=== PATIENT | female | born 1970 | race Caucasian/White ===

== ENCOUNTER 2016-07-11 02:57 | Observation (INO) ==
[2016-07-11] MEDS ORDERED: Naloxone 0.4 MG/ML INJ IVP PRN (05:22)
[2016-07-11] MEDS ORDERED: Acetaminophen 325 MG TABLET PO PRN (05:22)
[2016-07-11] MEDS ORDERED: Nitroglycerin 0.4 MG TAB.SUBL SL PRN (05:29)
[2016-07-11] MEDS: 0.9 % Sodium Chloride 1,000 ML IVC SCH ×2 (05:44→18:25)
--- NOTE | 2016-07-11 05:48 | Internal Med History&Physical ---
Date of Encounter: 07/11/16 Time of Encounter: 05:00 Assessment and Plan (1) Chest pain Current visit: No Status: Acute Patient has typical chest pain with shortness of breath, nausea, and diaphoresis. Respond to nitroglycerin. - Highly suspected ACS. - LBBB noticed, no previous EKG available to compare. - First troponin negative, We will track 3 sets of troponin. - We will repeat EKG in a.m. - Patient is placed on continuous cardiac monitoring. - Full dose Lovenox was given in [facility] emergency room at about 3 AM - Place patient on aspirin, Plavix, beta david, atorvastatin. - Check echocardiogram - Cardiology consult - Put patient on nothing by mouth now, further stress test will be determined by troponin level and cardiology recommendation. Qualifiers: Chest pain type: chest pain due to myocardial ischemia Ischemic chest pain type: unstable angina pectoris Qualified Code(s): I20.0 - Unstable angina (2) Tobacco abuse Current visit: Yes Status: Acute Smoking cessation education. Patient said that she does not need nicotine patch right now. (3) Morbid obesity Current visit: Yes Status: Acute need the lifestyle modification Qualifiers: Obesity type: due to excess calories Qualified Code(s): E66.01 - Morbid ( severe) obesity due to excess calories (4) DVT prophylaxis Current visit: Yes Status: Acute Patient has a full dose Lovenox at 3 AM. Further anticoagulation depending on the troponin level. Internal Medicine - H&P: HPI Chief complaint: Chest pain Admitted From: Home Plans for Post Hospital Care: Home History of present illness: Ms. Cornelius is a 45 year old female presents to [facility] the emergency room for chest pain. Patient said that the chest pain started from midnight and wake her up from sleep. The pain is located on the substernal area, sharp, 5 out of 10, no radiation. patient also feels nauseous but no vomiting. Patient complaining of shortness of breath when she has pain. She also has diaphoresis. Pain lasted about 15 minutes and resolved by itself. However, patient had another episode of chest pain in the emergency room. Last her several minutes and resolved after sublingual nitroglycerin use. Patient denies similar chest pain before. She denies recent travel and the pain is not pleural-like. Patient did have leg cramps, but she said this is not new and happens 2-3 times every week. Patient was found LBBB on EKG, no previous EKG available to compare. [facility] ER doctor called cardiology consult, recommend Lovenox 1 mg/kg subcutaneous once. Patient is pain-free when I saw her. I discussed CODE STATUS with patient. She is a full code. Past Med Surg Social Fam HX - Past Medical History Medical history: no medical history Psychiatric history: no psych history - Social History Smoking Status: Current every day smoker Packs per day: 1 Smokeless Tobacco Status: No Alcohol use: none Drug use: none - Family History Father Hx Family Cardiac Disorders: Yes (heart attack and stroke) Internal Medicine - H&P: Meds Ibuprofen [Motrin] 800 mg PO BID PRN 07/11/16 [History] Allergies Amoxicillin Allergy (Verified 07/11/16 01:13) Hives All Systems PM: A 10-system review of systems was performed and is negative for pertinent findings except as documented above in the HPI. - Constitutional Vitals: Temp Pulse Resp BP Pulse Ox 97.8 F 73 18 126/81 96 07/11/16 04:44 07/11/16 04:44 07/11/16 04:44 07/11/16 04:44 07/11/16 04:44 General appearance: Present: A&O X 3, no acute distress, answers questions appropriately - Head Head exam: Present: atraumatic, normocephalic - Eye Eye exam: Present: PERRL, conjuntiva pink, sclera anicteric Pupils: Present: PERRL - Neck Neck exam general surgery: Present: supple, trachea midline. Absent: lymphadenopathy - Respiratory Respiratory exam: Present: CTAB. Absent: accessory muscle use, rales, rhonchi, wheezes - Cardiovascular Cardiovascular exam: Present: RRR, +S1, +S2. Absent: diastolic murmur, gallop, rubs, systolic murmur - GI/Abdominal GI/Abdominal exam: Present: normal bowel sounds, soft, no peritoneal signs. Absent: distended, tenderness - Extremities Exam Extremities exam: Present: warm, radial pulses palpable and symetrical. Absent : calf tenderness, cyanotic, pedal edema - Neurological Exam Neurological exam: Present: CN II-XII intact, oriented X3, no focal deficits. Absent: pronater drift, facial droop, speech deficit - Skin Skin exam: Present: dry, intact Internal Med - H&P Results - EKG Data -: EKG Interpreted by Myself (LBBB) EKG shows normal: sinus rhythm Rate: normal
--- NOTE | 2016-07-11 09:25 | Cardiology Consult Note ---
Date of Encounter: 07/11/16 Time of Encounter: 08:00 Assessment and Plan (1) Chest pain Current Visit: No Status: Acute Per Cardiology: Atypical symptoms that occurred at rest. Currently chest pain-free. Troponins negative 2. Risk factors for CAD include obesity, nicotine abuse, and family history. Echo pending. Further recommendations after echo. Discussed and reviewed with Dr. Sanchez, will consider possible stress test versus catheterization. Qualifiers: Chest pain type: chest pain due to myocardial ischemia Ischemic chest pain type: unstable angina pectoris Qualified Code(s): I20.0 - Unstable angina (2) LBBB (left bundle branch block) Current Visit: Yes Status: Acute Per Cardiology: Left bundle branch block on ECG, unknown chronicity. Patient unaware of previous history and no records available for comparison. (3) Tobacco abuse Current Visit: Yes Status: Acute Per Cardiology: History smoking one half packs per day for 30 years. Smoking cessation counseling provided for 3-5 minutes. Discussion w patient/family: The assessment and plan as outlined above was discussed with the patient who expressed understanding and agreement. All questions were answered. Thank you for involving us in the care of your patient. Please call with any questions. History of Present Illness Consult date: 07/11/16 Requesting physician: Mihir Lopez Consult reason: LBBB, CP Chief complaint: Leg cramps, sweating, CP History of present illness: Ms. Cornelius is a 45 year old female with a relevant past medical history of obesity, nicotine abuse of smoking 1-1/2 packs per day for 30 years, positive family history of CAD with father with AR in his 60s. Cardiology consult for chest pain and new finding of left bundle branch block on ECG. Patient denies any previous awareness to left bundle branch block and reportedly has never had ECG. No previous ECGs found on file. She reports one episode of right-sided chest discomfort to her right shoulder region at rest about 1 week ago at work. Prior to yesterday evening her normal state of health other than slight increased fatigue from baseline. She does report chronic episodes of leg cramps for many years. She reports she awakened around midnight last night with leg cramping, however also developed diaphoresis with some mild nausea with some sharp stabbing chest pain that lasted for a few minutes and subsided. She denied any palpitations, vomiting, shortness of breath. Denies any recent fever, chills, nausea, vomiting, diarrhea. Denies any dizziness, syncope, falls. Denies any active bleeding or blood loss. Past Med Surg Social Fam HX - Past Medical History Attestation: Yes The following information was validated with the patient. Source: patient, old records reviewed Medical history: no medical history Psychiatric history: no psych history - Social History Smoking Status: Current every day smoker Packs per day: 1 Smokeless Tobacco Status: No Alcohol use: none Drug use: none - Family History Father Hx Family Cardiac Disorders: Yes (heart attack and stroke) Medications and Allergies Ibuprofen [Motrin] 800 mg PO BID PRN 07/11/16 [History] Allergies Amoxicillin Allergy (Verified 07/11/16 01:13) Hives All Systems Review: A 10-system review of systems was performed and is negative for pertinent findings except as documented above in the HPI. - Constitutional Constitutional: fatigue - Cardiovascular Cardiovascular: as per HPI, chest pain at rest - Musculoskeletal Musculoskeletal: muscle cramps Physical Examination Vital Signs, Last 4 Hours Temp Pulse Resp BP Pulse Ox 07/11/16 07:14 97.6 F 73 18 120/81 94 General: Conversant, No Apparent Distress HEENT: Atraumatic, Normocephaly, Mucus Membranes Moist Neck: No JVD, Normal carotid pulses Cardiac: Reg Rate and Rhythm, Normal S1 and S2, No Murmur Lungs: Normal Breath Sounds, No Wheeze, Rales, Rhonchi Neuro: Alert and responsive, No focal deficits noted Abdomen: Soft, Non-Tender, Other (obese) Skin: No rashes noted on visualized skin Musculoskeletal: No Chest Wall Tenderness Extremities: No Edema, Normal Pulses Results Lab Results Laboratory Tests 07/11/16 07/11/16 07/11/16 01:43 01:43 01:43 Hgb 13.6 Hct 42.7 Plt Count 162 INR 1.0 Creatinine 0.86 Est GFR (Non-Af Amer) > 60 AST 16 ALT 15 Troponin I B-Natriuretic Peptide 07/11/16 07/11/16 07/11/16 01:43 01:43 06:14 Hgb Hct Plt Count INR Creatinine Est GFR (Non-Af Amer) AST ALT Troponin I 0.01 0.00 B-Natriuretic Peptide 16 Active Medications Acetaminophen (Tylenol) 650 mg PO Q6HR PRN PRN Reason: Mild Pain (1-3) Stop: 01/10/17 05:23 Aspirin (Aspirin Ec) 81 mg PO DAILY [facility] Stop: 01/10/17 09:01 Sodium Chloride (0.9 % Sodium Chloride) 1,000 mls @ 100 mls/hr IVC .Q10H [facility] Stop: 01/10/17 05:31 Last Admin: 07/11/16 05:44 Dose: 100 mls/hr Metoprolol Tartrate (Lopressor) 12.5 mg PO BID [facility] Stop: 01/10/17 09:01 Naloxone HCl (Narcan) 0.4 mg IVP Q2MIN PRN PRN Reason: Opioid Reversal Stop: 01/10/17 05:23 Nitroglycerin (Nitroglycerin) 0.4 mg SL Q5MIN PRN PRN Reason: Chest Pain Stop: 01/10/17 05:30 - EKG Interpretation EKG results cardiology: personally reviewed, left bundle branch block, other ( Sinus rhythm with left bundle branch block on telemetry) Consult Discharge Plan - Plan Referrals: NO,PCP [Primary Care Provider] -
[2016-07-11] MEDS: Aspirin Enteric Coated 81 MG Tablet PO SCH (10:00)
[2016-07-11] MEDS ORDERED: Regadenoson 0.4 MG/5 ML SYRINGE IVP ONE (10:25)
--- NOTE | 2016-07-11 16:32 | ECHO - Doppler Report ---
Echocardiogram Name: Rajni Cornelius Date of Study: 07/11/2016 Date: 1970 Ht: 64.0 in Medical Record#: [id number] Age: 45 Wt: 296.0 lb Gender: Female BSA: 2.31 Order #: [id number] Location: [facility] Room #: [id number] Reading Physician: Cecilia Sanchez DO Greenskeeper Head: Elida Pollock Ordering Physician: Mihir Lopez MD Primary Physician: None Indications: Chest pain Impressions: LVEF 50-55%. There is evidence of mild diastolic dysfunction of the left ventricle. Atypical septal motion. Normal right ventricular size and function. No significant valvular dysfunction. No pulmonary hypertension. Left Ventricular Wall Motion: Rest Echo Findings The apical septal, mid inferior septal, basal inferior septal, mid anterior septal and basal anterior septal cotton were dyskinetic. All other wall segments showed normal motion. Findings: Study Quality * Technically sub-optimal due to body habitus. ECG Findings * Sinus rhythm with BBB. Left Ventricle * Atypical septal motion consistent with bundle branch block. * Mild left ventricular diastolic dysfunction. * LVEF 50-55%. Aorta * Normally sized aortic root. Aortic Valve * No aortic regurgitation. * Aortic valve not well visualized. * No aortic stenosis. Mitral Valve * No mitral regurgitation. * Normal mitral valve structure. * No mitral stenosis. Tricuspid Valve * Tricuspid valve not well visualized. * Trace tricuspid regurgitation. * Estimated RA pressure is 3 mmHg. * Estimated RVSP is 24 mmHg. * No pulmonary hypertension. Pulmonic Valve * Pulmonic valve is not well visualized. * No pulmonic stenosis. * No pulmonic regurgitation. Pulmonary Artery * Pulmonary artery not well visualized. Right Ventricle * Normal right ventricular structure and function. Right Atrium * Normal right atrial size. Interatrial Septum * No evidence of PFO by color Doppler. Pericardium * There is no pericardial effusion present. Left Atrium * Mildly dilated left atrium. IVC * Normal IVC dimensions and inspiratory collapse. History History of Smoking Years 30 Packs 2 Measurements: BP: 120/ 81 2D Normal Values IVSd: 1.20 cm 0.6 - 1.0 cm LVIDd: 4.10 cm 3.7 - 5.6 cm LVPWd: 1.20 cm 0.6 - 1.1 cm LVIDs: 2.70 cm 1.5 - 3.6 cm AO: 2.80 cm < 4.0 cm LA: 3.80 cm 2.0 - 4.0cm %FS: 34.10 cm >25 % LA volume: 71 Mitral Valve Peak E:.98 m/sec Peak A:1.02 m/sec E/A Ratio:1 Peak E' Lat Jozef:16.5 cm/s Peak E' Med Jozef:7.02 cm/s E/E' Lat Ratio:6 E/E' Med Ratio:14 Tricuspid Valve TV Regurg Peak Grad: 21.00mmHg TV Regurg Peak Jozef: 2.27m/sec Updated by Cecilia Sanchez on 07/11/2016 4:27:37 PM electronically signed on 07/11/2016 4:28:22 PM with status of Final Wall Motion Ramirez: 1=Normal, 2=Hypokinesis, 3=Akinesis, 4=Dyskinesis, 5=Aneurysmal, 6=Hyperkinetic, X=Not Visualized (Blank)=Missing
--- NOTE | 2016-07-11 17:06 | Event Note ---
Date of Encounter: 07/11/16 Time of Encounter: 16:00 Patient seen and examined. On examination, patient sitting upright in bed watching television. Patient denies pain or shortness of breath at this time. She states she is tired. Troponins negative 3. ECG revealing left bundle branch block, unable to determine chronicity as we do not have prior EKGs for comparison the patient is a remarkably poor historian. 2 part stress test in process. 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 Potassium levels normal, will check magnesium. Patient has been counseled on avoiding caffeine as she has 3 bottles of empty Mountain Dew on her bedside table. Will initiate vitamin B6 supplementation. We will await second half of her stress test tomorrow. Cardiology is on board. Chest x-ray at [facility] impression: Normal portable chest. Echocardiogram impressions: LVEF 50-55%. There is evidence of mild diastolic dysfunction of the left ventricle. Atypical septal motion. Normal right ventricular size and function. No significant valvular dysfunction. No pulmonary hypertension.
[2016-07-11] MEDS: Pyridoxine (B-6) 50 MG TABLET PO SCH (18:24)
[2016-07-12] MEDS: 0.9 % Sodium Chloride 1,000 ML IVC SCH (04:26)
[2016-07-12 04:38] LABS: Basophils % 0.7 %; Eosinophils # 0.1 K/mcL (0.0-0.6); Eosinophils % 1.6 %; Hematocrit 42.9 % (35.3-44.9); Hemoglobin 13.4 g/dL (11.5-15.4); Immature Granulocytes % 0.5 % (0-4); Lymphocytes # 1.3 K/mcL (0.6-4.6); Mean Corpuscular HGB Conc 31.2 g/dL (31.6-35.5); Mean Corpuscular Hemoglobin 28.1 pg (28.0-33.3); Mean Corpuscular Volume 89.9 fL (83.0-100.0); Monocytes # 0.5 K/mcL (0.0-1.3); Monocytes % 10.6 %; Neutrophils # 2.5 K/mcL (1.6-8.9); Platelet Count 166 K/mcL (140-400); Red Blood Count 4.77 M/mcL (3.82-4.97); Red Cell Distribution Width 13.1 % (11.5-14.5); Segmented Neutrophils % 56.6 %
[2016-07-12 04:56] LABS: BUN/Creatinine Ratio 15 (6-26); Blood Urea Nitrogen 11 mg/dL (7-20); Calcium 8.1 mg/dL (8.6-10.8); Carbon Dioxide 24 mEq/L (19-29); Chloride 111 mEq/L (98-109); Chol/HDL Ratio 3.2 (0-4.9); Cholesterol 120 mg/dL (< 200); Glucose 100 mg/dL (70-99); HDL Cholesterol 37 mg/dL (40-59); LDL Cholesterol,Calculated 69 mg/dL (0-99); Osmolality,Calculated 287 (280-300); Potassium 4.3 mEq/L (3.5-4.5); Sodium 139 mEq/L (136-145); Triglycerides 69 mg/dL (< 150); eGFR For African Americans > 60 (> 60); eGFR For Non-African Americans > 60 (> 60)
[2016-07-12] MEDS: Pyridoxine (B-6) 50 MG TABLET PO SCH (08:36)
[2016-07-12] MEDS: Aspirin Enteric Coated 81 MG Tablet PO SCH (08:36)
--- NOTE | 2016-07-12 11:23 | Nuclear Medicine Stress Report ---
Regadenoson Nuclear 2 day Name: Rajni Cornelius Date of Study: 07/11/2016 Date: 1970 Ht: 64.0 in Medical Record#: [id number] Age: 45 Wt: 290.0 lb Gender: Female Order #: [id number] Location: [facility] Room: [facility] Supervising Provider: Jose Cruz Zaman CNP Reading Physician: Valentín Marquis DO, FAC, [facility] Ordering Physician: Enedelia Salas CNP Primary Care Physician: None Stress Technologist: Alaina Tran, [employer] INTER[employer] Range Attendant: Shorty Snowden Indications: Chest Pain Impression: Fair quality two day study. Pharmacologic stress ECG is non diagnostic for ischemia due to baseline LBBB. Gated EF = 58%. Small sized, mild intensity, fixed mid anteroseptal and apical septal defect consistent with artifact. Small sized, mild intensity, reversible apical inferior defect. SDS 1. Although this could represent a small area of ischemia, I suspect it is due to artifact. Low risk positive study. History: History of Smoking Stress Test Summary: Stress Test Type: Pharmacologic Regadenoson 0.4mg/5ml given IV Baseline Information: Initial Heart Rate: 77 Blood Pressure: 118/88 Stress Information: Test Terminated Due to (primary): As per protocol Maximum Blood Pressure: 122/86 Maximum Heart Rate: 91 Percent Maximum Heart Rate Achieved: 52 Double Product: 24283 METS Reached: 1 Symptoms: No chest symptoms Nuclear Summary: SPECT myocardial perfusion imaging using Tc99m Sestamibi given intravenously was performed at rest and following cardiac stress testing. The resting images were obtained following initial dose of 33.0 mCi. Following stress an additional dose of 35.4 mCi was given at peak exercise or 30 seconds post regadenoson infusion. Medication Given: Time Medication Dose Units Route Findings: Stress Note * Resting ECG demonstrated normal sinus rhythm. * Left Bundle Branch Block. * No baseline arrhythmias were noted. * Pharmacologic stress ECG is non diagnostic for ischemia due to baseline LBBB. * No arrhythmias were noted during stress. * Patient had no chest pain during stress. * Normal hemodynamic responses to pharmacologic stress. Study Quality * Study quality was fair. Gated EF % * Gated EF = 58%. Left Ventricle * The left ventricle is dilated. LVEDV = 142 mL. NORMALS * Normal wall motion. Rest Imaging * The mid anteroseptal and apical septal segments show a mild reduction in perfusion. Stress Imaging * The mid anteroseptal and apical septal segments show a mild reduction in perfusion. * The apical inferior segment shows a mild reduction in perfusion. TID * No evidence of transient ischemic dilatation. TID ratio = 0.90. Lung Uptake * There is no evidence of increase lung uptake. Updated by Valentín Marquis DO, FACGilberto, YAMILETH, NAVJOT on 07/12/2016 11:15:48 AM electronically signed on 07/12/2016 11:19:10 AM with status of Final
--- NOTE | 2016-07-12 13:46 | Cardiology Progress Note ---
Date of Encounter: 07/12/16 Time of Encounter: 13:41 Assessment and Plan (1) Abnormal stress test Current Visit: Yes Status: Acute 2 day stress resulted. Fair quality. There was a small sized, mild intensity fixed mid anteroseptal and apical septal defect consistent with artifact. There was a small sized, mild intensity reversible apical inferior defect, SDS 1. Although could represent small area of ischemia, suspect it is due to artifact. Low risk positive study. Discussed with pt regarding medical management with close outpt follow-up vs. LHC. R/B/A to both options discussed. Pt would like to proceed with medical management and close outpt follow-up. No recurrent chest pain. ASA, Statin, BB. Will plan for outpt follow-up in 1-2 weeks. Pt instructed that if she were to have recurrent chest pain that is worsening or does not subside, report back to ED. Cardiology signing off. Reconsult PRN. (2) Chest pain Current Visit: No Status: Acute Per Cardiology: Atypical symptoms that occurred at rest. Has remained chest pain-free. Troponins negative. Risk factors for CAD include obesity, nicotine abuse, and family history. Echo showed preserved EF. Low risk positive stress test as above that pt has opted for medical management with close outpt follow-up. Qualifiers: Chest pain type: chest pain due to myocardial ischemia Ischemic chest pain type: unstable angina pectoris Qualified Code(s): I20.0 - Unstable angina (3) Tobacco abuse Current Visit: Yes Status: Acute Per Cardiology: History smoking one half packs per day for 30 years. Smoking cessation counseling provided for 3-5 minutes. (4) LBBB (left bundle branch block) Current Visit: Yes Status: Acute Per Cardiology: Left bundle branch block on ECG, unknown chronicity. Patient unaware of previous history and no records available for comparison. Discussion w patient/family: The assessment and plan as outlined above was discussed with the patient and/or family members who expressed understanding and agreement. All questions were answered. Thank you for involving us in the care of your patient. Please call with any questions. I will discuss all the above with Dr. Adán Mckeon and make changes as necessary. Subjective Principal diagnosis: Chest pain Interval history: Pt denies chest pain overnight. Denies acute complaints. Echo resulted--EF 50-55 %, mild diastolic dysfunction. 2 day stress resulted. Fair quality. There was a small sized, mild intensity fixed mid anteroseptal and apical septal defect consistent with artifact. There was a small sized, mild intensity reversible apical inferior defect, SDS 1. Although could represent small area of ischemia, suspect it is due to artifact. Low risk positive study. Objective Vital Signs, Last 4 Hours Temp Pulse Resp BP Pulse Ox 07/12/16 11:25 98.0 F 67 16 123/76 97 Vital Signs Temp Pulse Resp BP Pulse Ox 07/12/16 11:25 98.0 F 67 16 123/76 97 07/12/16 08:32 98.0 F 67 16 147/76 96 07/12/16 02:58 97.6 F 74 15 128/75 95 07/11/16 23:45 97.5 F L 78 16 153/84 95 07/11/16 19:31 97.9 F 92 16 124/71 96 07/11/16 15:14 98.3 F 76 16 146/78 96 Intake and Output 07/11/16 07/12/16 07/12/16 23:59 07:59 15:59 Intake Total 1000 / 1000 Balance 1000 / 1000 Intake: IV Fluids 1000 / 1000 0.9 % Sodium Chloride 1, 1000 / 1000 000 ML @ 100 mls/hr IVC . Q10H [facility] Rx#:[id number] Other: # Voids 1 1 Weight 133.81 kg Patient Weight 07/12/16 23:59 Weight 133.81 kg General: Conversant, No Apparent Distress HEENT: Atraumatic, Normocephaly, Mucus Membranes Moist Neck: No JVD, Normal carotid pulses Cardiac: Reg Rate and Rhythm, Normal S1 and S2, No Murmur Lungs: Normal Breath Sounds, No Wheeze, Rales, Rhonchi Neuro: Alert and responsive, No focal deficits noted Abdomen: Soft, Non-Tender Skin: No rashes noted on visualized skin Musculoskeletal: No Chest Wall Tenderness Extremities: No Clubbing, No Cyanosis, No Edema, Normal Pulses Results 07/12/16 03:49 07/12/16 03:49 Lab Results 07/12/16 07/12/16 07/12/16 03:49 03:49 03:49 WBC 4.4 Hgb 13.4 Hct 42.9 Plt Count 166 Sodium 139 Potassium 4.3 Chloride 111 H Carbon Dioxide 24 BUN 11 Creatinine 0.73 Glucose 100 H Calcium 8.1 L Magnesium 2.0 Short CBC 07/12/16 Range/Units 03:49 WBC 4.4 (4.3-11.1) K/mcL Hgb 13.4 (11.5-15.4) g/dL Hct 42.9 (35.3-44.9) % Plt Count 166 (140-400) K/mcL Neutrophils # 2.5 (1.6-8.9) K/mcL BMP 07/12/16 Range/Units 03:49 Sodium 139 (136-145) mEq/L Potassium 4.3 (3.5-4.5) mEq/L Chloride 111 H (98-109) mEq/L Carbon Dioxide 24 (19-29) mEq/L BUN 11 (7-20) mg/dL Creatinine 0.73 (0.57-1.11) mg/dL Glucose 100 H (70-99) mg/dL Calcium 8.1 L (8.6-10.8) mg/dL Active Medications Acetaminophen (Tylenol) 650 mg PO Q6HR PRN PRN Reason: Mild Pain (1-3) Stop: 01/10/17 05:23 Aspirin (Aspirin Ec) 81 mg PO DAILY [facility] Stop: 01/10/17 09:01 Last Admin: 07/12/16 08:36 Dose: 81 mg Sodium Chloride (0.9 % Sodium Chloride) 1,000 mls @ 100 mls/hr IVC .Q10H [facility] Stop: 01/10/17 05:31 Last Admin: 07/12/16 04:26 Dose: 100 mls/hr Metoprolol Tartrate (Lopressor) 12.5 mg PO BID [facility] Stop: 01/10/17 09:01 Last Admin: 07/12/16 08:36 Dose: 12.5 mg Naloxone HCl (Narcan) 0.4 mg IVP Q2MIN PRN PRN Reason: Opioid Reversal Stop: 01/10/17 05:23 Nitroglycerin (Nitroglycerin) 0.4 mg SL Q5MIN PRN PRN Reason: Chest Pain Stop: 01/10/17 05:30 Pyridoxine HCl (Vitamin B-6) 50 mg PO DAILY [facility] Stop: 01/10/17 17:16 Last Admin: 07/12/16 08:36 Dose: 50 mg - Imaging and Cardiology Stress Test: report reviewed Echo: report reviewed - EKG Interpretation EKG results cardiology: other (24 hour tele AVG HR 73, SR, no significant pauses or arrhythmias.) Consult Discharge Plan - Plan Referrals: NO,PCP [Primary Care Provider] -
[2016-07-12 15:02] VITALS: BP 142/84
--- NOTE | 2016-07-12 15:27 | Discharge Summary ---
Date of Encounter: 07/12/16 Time of Encounter: 09:30 (and 1500) - Discharge Diagnosis (1) Chest pain Priority: Primary Status: Resolved Comments: Patient denied chest pain on day of discharge. Chest x-ray negative. Troponins negative. Stress test slightly abnormal and cardiology offered her left heart catheter versus medical management and the decision was made to proceed with medical management. Aspirin, statin, and beta david added to her regimen and she will follow up closely outpatient. Qualifiers: Chest pain type: chest pain due to myocardial ischemia Ischemic chest pain type: unstable angina pectoris Qualified Code(s): I20.0 - Unstable angina (2) Abnormal stress test Priority: Primary Status: Acute (3) LBBB (left bundle branch block) Priority: Primary Status: Acute Comments: unclear on chronicity- followup outpatient with cardiology (4) Tobacco abuse Priority: Secondary Status: Chronic Comments: declines counseling. 1PPD. (5) DVT prophylaxis Priority: Primary Status: Acute Comments: observation patient; up ad miguel angel (6) Morbid obesity with BMI of 50.0-59.9, adult Priority: Secondary Status: Chronic (7) [place] Priority: Secondary Status: Chronic Comments: Patient endorsing severe leg cramps at least twice a week. She was instructed to try to avoid or decrease caffeine. Started on B6 supplementation. Recommend outpatient sleep study which can certainly contribute to restless legs. Potassium and magnesium levels normal. - Discharge Medications Prescriptions: Aspirin Enteric Coated [Aspirin EC] 81 mg PO DAILY #30 tablet. Atorvastatin [Lipitor] 40 mg PO HS #30 tablet Metoprolol [Lopressor] 12.5 mg PO BID #30 tablet Pyridoxine (B-6) [Vitamin B-6] 50 mg PO DAILY #30 tablet Home Medications: Ibuprofen [Motrin] 800 mg PO BID PRN 07/11/16 [History] Aspirin Enteric Coated [Aspirin EC] 81 mg PO DAILY #30 tablet. 07/12/16 [Rx] Atorvastatin [Lipitor] 40 mg PO HS #30 tablet 07/12/16 [Rx] Metoprolol [Lopressor] 12.5 mg PO BID #30 tablet 07/12/16 [Rx] Pyridoxine (B-6) [Vitamin B-6] 50 mg PO DAILY #30 tablet 07/12/16 [Rx] Allergies/Adverse Reactions: Allergies Amoxicillin Allergy (Verified 07/11/16 01:13) Hives Procedures/tests Complete & Pending: Procedures Performed prior 72 hours Category Date Time Status NM ralph perf SPECT multi [NM] Routine Exams 07/11/16 09:56 Taken ECG 12 lead ECG [ECG] AM 0600 Y 07/11/16 06:00 Completed EV echocardiogram Routine Y 07/11/16 05:39 Completed SP pharm nuclear stress Routine Y 07/11/16 09:56 Completed Date of admission: 07/11/16 04:14 Primary care physician: PCP NO Consults: 07/11/16 05:30 Consult to Cardiology [CONS] Routine Comment: Consulting Provider: Cardiology Vera Reason for Consult: Chest pain with LBBB Call Completed: Yes Discharging clinician: Enedelia Salas Anticipated date of discharge: 07/12/16 - Patient Status Disposition: Home, Self-Care Condition: Fair Functional capacity at discharge: independent ambulation Overall status at discharge: patient is back to baseline - Discharge Instructions Follow Up With: Cardiology [facility] [Provider Group] NO,PCP [Primary Care Provider] - Additional Instructions: Patient needs a primary care [id number] as soon as possible. Follow up with cardiology within 1-2 weeks - Diet and Activity Activity: increase activity as tolerated Diet: low fat, low cholesterol, low salt diet Hospital course: Ms. Cornelius is a 45 year old female with only past medical history of tobacco abuse and morbid obesity. Patient presented to the emergency department chief complaint chest pain that woke her up from sleep located substernally, sharp and does not radiate. Patient also endorses nausea but no vomiting. She complained of shortness of breath while the pain was present. She also endorsed diaphoresis and stated the pain lasted approximately 15 minutes and resolved by itself. Patient had another episode of chest pain in the emergency department that lasted several minutes and resolved after sublingual nitroglycerin. Workup in the emergency department revealing abnormal ECG. ECG with left bundle branch block, unable to determine chronicity has no prior results are available and patient is unsure of any history. Chest x-ray unremarkable. Patient was admitted to the hospitalist service for further evaluation and management. Patient remained chest pain-free and denied shortness of breath during this admission. She had an echocardiogram that revealed ejection fraction of 50-55% mild diastolic dysfunction, and atypical septal motion of unknown etiology. Patient had a 2 day nuclear stress test that was mildly positive and cardiology was brought on board. Cardiology already left heart catheter versus medical management and the patient opted for medical management and she was started on an aspirin, statin, and beta david and she will follow up closely outpatient. Patient is also stating that she has severe leg cramps at least twice per week. She was started on B6 supplements. She was also encouraged to decrease the amount of caffeine that she drinks. She was also instructed to ask her primary care provider about a possible sleep study as this can lead to leg cramping and restless legs. She was discharged home in stable condition with close outpatient follow-up recommended. Chest x-ray at [facility] impression: Normal portable chest. Echocardiogram impressions: LVEF 50-55%. There is evidence of mild diastolic dysfunction of the left ventricle. Atypical septal motion. Normal right ventricular size and function. No significant valvular dysfunction. No pulmonary hypertension. 2 day [facility] nuclear stress test impression: Fair quality 2 days steady. Pharmacologic stress ECG is nondiagnostic for ischemia due to baseline LBBB. Gated ejection fraction equals 58%. Small sized, mild intensity, fixed mid anteroseptal and apical septal defect consistent with artifact. Small size, mild intensity, reversible apical inferior defect. SDS 1. This could represent a small area of ischemia, I suspected is due to artifact. Low risk positive study. - Time Spent with Patient Total time spent providing and/or coordinating discharge services: - Constitutional Vitals: Temp Pulse Resp BP Pulse Ox 98.4 F 73 17 142/84 98 07/12/16 15:01 07/12/16 15:01 07/12/16 15:01 07/12/16 15:01 07/12/16 15:01 General appearance: Present: A&O X 3, morbidly obese, pleasant, no acute distress, answers questions appropriately - Head Head exam: Present: atraumatic, normocephalic - Eye Eye exam: Present: PERRL, conjuntiva pink, sclera anicteric Pupils: Present: PERRL - Neck Neck exam general surgery: Present: supple, trachea midline. Absent: lymphadenopathy - Respiratory Respiratory exam: Present: decreased breath sounds. Absent: accessory muscle use, rales, respiratory distress, rhonchi, wheezes - Cardiovascular Cardiovascular exam: Present: RRR, +S1, +S2. Absent: diastolic murmur, gallop, rubs, systolic murmur - GI/Abdominal GI/Abdominal exam: Present: normal bowel sounds, soft, no peritoneal signs. Absent: distended, tenderness - Extremities Exam Extremities exam: Present: warm, radial pulses palpable and symetrical. Absent : calf tenderness, cyanotic, pedal edema - Neurological Exam Neurological exam: Present: alert, CN II-XII intact, normal gait, oriented X3, no focal deficits, strengths equal and symetr throughout. Absent: pronater drift, facial droop, speech deficit - Skin Skin exam: Present: dry, intact, normal color, warm
== END 2016-07-12 15:54 | disposition home or self-care (01) ==
LOC: 3BNU
PROVIDERS: ADMIT Internal Medicine; ATTEND Nurse Practitioner Family